=== PATIENT | male | born 1955 | race Caucasian/White ===

== ENCOUNTER 2019-03-08 23:59 | Emergency (ER) | payer BC ==
[~2019-03-08] VITALS: Ht 175.3 cm; Wt 118.2 kg
[2019-03-09] MEDS ORDERED: HYZAAR 25 MG-101 TAB PO (00:08)
[2019-03-09] MEDS ORDERED: ZOCOR 40MG40 MG PO (00:09)
[2019-03-09 00:38] VITALS: TEMP 98.7
[2019-03-09 00:53] LABS: HEMATOCRIT 45.6 % (42.0-52.0); HEMOGLOBIN 15.3 g/dl (13.5-18.0); MEAN CELL VOLUME 92 fl (80.0-100.0); MEAN CORPUSCULAR HEMOGLOBIN 31 pg (27.0-31.0); MEAN CORPUSCULAR HGB CONC 34 g/dl (33.0-37.0); MEAN PLATELET VOLUME 10.3 fl (7.4-10.4); PLATELET COUNT 312 K/mm3 (130-400); RED BLOOD COUNT 4.96 M/mm3 (4.20-5.60); REDCELL DISTRIBUTION WIDTH-CV 12.8 % (11.5-14.5)
[2019-03-09 01:00] LABS: ALANINE AMINOTRANSFERASE 38 U/L (21-72); ALBUMIN 4.3 gm/dL (3.5-5.0); ALKALINE PHOSPHATASE 93 U/L (50-136); ANION GAP 9 mmol/L (7-16); AST,SGOT 37 U/L (15-37); BILIRUBIN,TOTAL 0.3 mg/dL (0.0-1.0); BLOOD UREA NITROGEN 27 mg/dL (9-20); CALCIUM 9.5 mg/dL (8.4-10.2); CARBON DIOXIDE 26 mmol/L (22-30); CHLORIDE 102 mmol/L (98-107); CREATININE, serum 0.97 (0.66-1.25); GLUCOSE 119 mg/dL (74-106); POTASSIUM 4.1 mmol/L (3.4-5.0); SODIUM 137 mmol/L (137-145); TOTAL PROTEIN 7.6 gm/dL (6.4-8.2)
[2019-03-09 01:01] LABS: C-REACTIVE PROTEIN < 0.5 mg/dL (0.0-0.9)
[2019-03-09 01:09] LABS: BAND 4 % (0-10); EOSINOPHIL 5 % (0-4); LYMPHOCYTE 37 % (20.0-51.0); NEUTROPHILS 46 % (42.0-75.2)
[2019-03-09 01:10] LABS: PLATELET ESTIMATE NORMAL (NORMAL)
[2019-03-09] MEDS ORDERED: PREDNISONE20 MG PO (01:16)
[2019-03-09 01:50] VITALS: BP 122/66; PULSE 74
== END 2019-03-09 01:50 | disposition home or self-care (01) ==
LOC: COL.ER 23:59
PROVIDERS: Emergency Medicine
DX: G51.0 Bell's palsy (principal); I10 Essential (primary) hypertension; E78.5 Hyperlipidemia, unspecified
CPT/HCPCS: J2930; J7040

== ENCOUNTER → 2023-07-23 | Outpatient (CLI) | payer BC ==
[~2023-07-23] MED LIST: HYZAAR 25 MG-101 TAB PO; PREDNISONE20 MG PO; ZOCOR 40MG40 MG PO
== END ==
LOC: COL.RAD 13:05
DX: Z12.2 Encounter for screening for malignant neoplasm of respiratory organs (principal); F17.200 Nicotine dependence, unspecified, uncomplicated

== ENCOUNTER 2023-12-24 07:06 | Day surgery (SDC) | payer BC ==
[~2023-12-24] VITALS: Ht 185.4 cm; Wt 104.1 kg
[2023-12-24] VITALS (9 sets, daily range): BP systolic 90–131; BP diastolic 43–76; PULSE 80–86; TEMP 98.4
[2023-12-24] MEDS ORDERED: 1/2 NS 1,000 ML IV SCH (07:15)
[2023-12-24] MEDS ORDERED: ASPIRIN 81M81 MG/TA2 PO (08:02)
[2023-12-24] MEDS ORDERED: ARMOUR THYROID30 MG PO (08:02)
[2023-12-24] MEDS ORDERED: OZEMPIC0.25 MG/02 SQ (08:03)
[2023-12-24] MEDS ORDERED: THE MEDICINE S200 M2 PO (08:03)
[2023-12-24] MEDS ORDERED: LAMISIL250 M1 PO (08:03)
[2023-12-24] MEDS ORDERED: OMEGA-3 FISH1000 MG PO (08:04)
[2023-12-24] MEDS ORDERED: VITAMIN D 50,1.25 MG PO (08:05)
[2023-12-24 08:06] LABS: HEMOGLOBIN 17.7 g/dl (13.5-18.0); MEAN CELL VOLUME 92 fl (80.0-100.0); MEAN CORPUSCULAR HEMOGLOBIN 30 pg (27-31); MEAN CORPUSCULAR HGB CONC 33 g/dl (33.0-37.0); MEAN PLATELET VOLUME 9.9 fl (7.4-10.4); PLATELET COUNT 286 K/mm3 (130-400); RED BLOOD COUNT 5.85 M/mm3 (4.20-5.60); REDCELL DISTRIBUTION WIDTH-CV 13.4 % (11.5-14.5)
[2023-12-24 08:07] LABS: HEMATOCRIT 53.5 % (42.0-52.0)
[2023-12-24 08:23] LABS: CALCIUM 10.1 mg/dL (8.4-10.2); CREATININE, serum 1.11 mg/dL (0.72-1.25); POTASSIUM 4.5 mEq/L (3.5-4.5)
[2023-12-24] MEDS ORDERED: Nitroglycerin 2% Topical Oint 1 GM UD TD SCH (08:47)
[2023-12-24 09:02] LABS: PARTIAL THROMBOPLASTIN TIME 29.3 SECONDS (26.0-37.0); PROTHROMBIN TIME 11.1 SECONDS (9.7-12.8)
[2023-12-24] MEDS ORDERED: VIAGRA 25MG TAB25 MG PO (09:20)
--- NOTE | 2023-12-24 09:39 | NUR ---
See merge for all medication, assessment, intervention, and vital sign times.
[2023-12-24] MEDS ORDERED: niCARdipine (Cath Lab) 100 MCG/ML 10 ML VIAL IA SCH (10:00)
[2023-12-24] MEDS ORDERED: Heparin 1,000 UNITS/ML 10 ML Multi-Dose VIAL IV SCH (10:07)
[2023-12-24] MEDS ORDERED: Midazolam 2 MG/2 ML VIAL IV SCH (10:13)
[2023-12-24] MEDS ORDERED: fentaNYL 50 MCG/ML 2 ML VIAL IV SCH (10:14)
[2023-12-24] MEDS ORDERED: Iohexol 350 - 100 ML VIAL INCOR ONE (10:14)
--- NOTE | 2023-12-24 10:35 | NUR ---
Bedside report completed with Grace CLEMENS. Call light within reach, first set of vitals reviewed, 1000 ml bolus ordered by Dr. Walls in skilled laborer complete, no other fluids at this time. Grace CLEMENS denies questions/concerns at this time.
--- NOTE | 2023-12-24 13:55 | NUR ---
PT TOLERATED RECOVERY PERIOD WELL. VS REMAINED WITHIN NORMAL LIMITS. RIGHT RADIAL DRESSING REMAINED CLEAN DRY AND INTACT. PT REMAINED FREE FROM SIGNS OF BLEEDING AND HEMATOMA. PT WAS ASSISTED TO MAIN LOBBY VIA WHEELCHAIR. IV DISCONTINUED. PT FREE FROM ACUTE CONCERNS AND COMPLAINTS UPON DISCHARGE.
== END 2023-12-24 13:57 | disposition home or self-care (01) ==
LOC: COL.CAR 07:06
PROVIDERS: Internal Medicine Cardiovascular Disease
DX: I20.89 Other forms of angina pectoris (principal)
CPT/HCPCS: C1769; J1644; J2250; J2404; J3010; Q9967